=== PATIENT | female | born 1950 | race Caucasian/White ===

== ENCOUNTER → 2022-04-14 | Outpatient (CLI) | payer MEDICARE ==
[2022-04-14 14:22] LABS: African American GFR (CKD) >90 (>60 ml/min/1.73 sqM); Blood Urea Nitrogen 12 mg/dL (7-17); Non-African American GFR(CKD) 85 (>60 ml/min/1.73 sqM)
--- NOTE | 2022-04-14 15:52 | CT ---
EXAMINATION TYPE: CT angio neck CT DLP: 1726.4 mGycm, Automated exposure control for dose reduction was used. DATE OF EXAM: 04/14/2022 3:40 PM COMPARISON: None. CLINICAL INDICATION:Female, 72 years old with history of I71.2 THORACIC AORTIC ANEURYSM, WITHOUT RUPT URE; PHH, left subclavian stenosis and stent placement TECHNIQUE: Axially acquired helical CT angiogram of the neck was obtained with contrast utilizing 65 cc of Isovue-370 administered intravenously. Axial images are supplemented with 3D reconstructions wh ich were post-processed at an independent workstation. NASCET criteria used. FINDINGS: CTA NECK: Right Carotid System: The common carotid artery and external carotid artery are patent. The carotid bifurcation demonstrate s mild calcified and noncalcified plaque. Less than 50% stenosis at the origin of the internal caroti d artery. The remaining portions of the internal carotid artery demonstrate normal size without signi ficant narrowing. Medial deviation of the common carotid artery at the level of thyroid. Left Carotid System: The common carotid artery and external carotid artery are patent. The carotid bifurcation demonstrate s mild calcified and noncalcified plaque. Less than 50% stenosis at the origin of the internal caroti d artery. The remaining portions of the internal carotid artery demonstrate normal size without sign ificant narrowing. Medial deviation of the common carotid artery at the level of thyroid. Vertebral arteries are patent without evidence hemodynamically significant stenosis. Mild atelectatic plaquing of the intracranial portions of both vertebral arteries. There is a three-vessel aortic arch. The origins of the great vessels are patent. Moderate stenosis a t the origin of the left common carotid artery secondary to calcified plaque. Patent left subclavian artery stent at its origin with mural thrombus identified with approximately 60-80% narrowing. There is approximately 50% stenosis secondary to calcified plaque just before the origin of the left subcla vian artery. The right brachiocephalic trunk is patent with minimal noncalcified and calcified pleura l plaquing. IMPRESSION: 1. No evidence of dissection of the cervical internal carotid arteries or vertebral arteries. 2. Less than 50% stenosis of the bilateral internal carotid arteries at their origins secondary to ca lcified and noncalcified plaque. 3. Moderate stenosis at the origin of the left common carotid artery secondary to calcified plaque. 4. The left subclavian artery stent is patent however there is mural thrombus and narrowing of 60-80% . Approximately 50% stenosis of the left subclavian artery secondary to calcified plaque just before the origin of the left vertebral artery.
--- NOTE | 2022-04-14 16:25 | CT ---
EXAMINATION TYPE: CT angio chest CT DLP: 1726.4 mGycm, Automated exposure control for dose reduction was used. DATE OF EXAM: 04/14/2022 4:09 PM COMPARISON: CTA chest 09/20/2012. CLINICAL INDICATION:Female, 72 years old with history of I71.2 THORACIC AORTIC ANEURYSM, WITHOUT RUPT URE; AAA, without rupture TECHNIQUE/CONTRAST: CTA scan of the thorax is performed with IV Contrast, patient injected with 65 mL of Isovue 370MIP an d 3-D images are created and reviewed. FINDINGS: Lungs/Pleura: No evidence of pleural effusion or pneumothorax. Marginal increase in size of right upp er lobe 6 mm groundglass nodular density from prior examination 2013 (series 3, image 20). Mild centr ilobular and paraseptal emphysematous changes. Right upper lobe calcified granuloma. Right lower lobe subsegmental atelectasis. Airway: Large airways are patent. Heart: Heart is within normal limits for size. No pericardial effusion. Coronary artery calcification s and/or stents. Postsurgical changes of CABG. Vasculature: Mild smooth prominence of the ascending aorta measuring up to 3.4 cm, previously 3.3 cm when measured with similar technique. Atherosclerotic calcification of the aorta and its branches. Mi ld stenosis of the origin of the celiac axis and SMA. Please refer to dedicated CTA neck of the same day for findings related to the cranial vessels. Mediastinum: No gross evidence of adenopathy. Musculoskeletal: No acute osseous abnormalities. Median sternotomy wires. Multilevel degenerative nir nges of the visualized spine. Soft Tissues: Unremarkable. Lower neck: No significant findings. Upper Abdomen: Small hiatal hernia. Postoperative changes of the GE junction. Scattered calcified gra nulomas within the spleen. Liver is diffusely hypoattenuating. Contrast is demonstrated within the bi lateral renal collecting systems which limits evaluation for renal calculi. Bilateral renal cysts lar gest in the superior pole the right kidney measuring 2.4 cm.. IMPRESSION: 1. Marginal increase in size of smooth prominence of the ascending aorta measuring up to 3.4 cm from 2013. 2. Marginal increase in size of right upper lobe 6 millimeter groundglass nodular density dating jose k to 2012. Likely benign, consider follow-up CT chest one year. 3. Mild COPD changes. 4. Please refer to dedicated CTA neck of the same day for findings related to great vessels. 5. Sequelae of prior granulomatous disease. 6. Hepatic steatosis.
== END | disposition home or self-care (01) ==
LOC: RADCTMAIN 13:34
PROVIDERS: ATTEND Surgery
DX: I71.20 Thoracic aortic aneurysm, without rupture, unspecified (principal); I65.23 Occlusion and stenosis of bilateral carotid arteries; J44.9 Chronic obstructive pulmonary disease, unspecified; K76.0 Fatty (change of) liver, not elsewhere classified; J98.4 Other disorders of lung
CPT/HCPCS: 82565; 84520; 70498; 71275; 36415; Q9967

== ENCOUNTER 2022-06-12 07:53 | Day surgery (SDC) | payer MEDICARE ==
[~2022-06-12 07:53] MED LIST: ALPRAZolam 0.25 MG TAB PO PRN; ALPRAZolam 0.5 MG TAB PO PRN; ASPIRIN 325 MG TAB PO STA; NITROGLYCERIN SL TABS 0.4 MG TAB SUBLINGUAL PRN
[2022-06-12] MEDS: SODIUM CHLORIDE 0.9% 1,000 ML in EMPTY BAG 1 BAG IV SCH ×10 (08:15→22:22)
[2022-06-12] MEDS ORDERED: LIDOCAINE 1% INJ 10MG/ML (30 ML VIAL-PF) IV ONE (09:30)
[2022-06-12] MEDS ORDERED: MIDAZOLAM 2 MG/2 ML VIAL IV ONE ×2 (09:33→09:44)
[2022-06-12] MEDS ORDERED: HEPARIN SODIUM 1,000 UN/ML (10ML VL) IV ONE (09:45)
[2022-06-12] MEDS ORDERED: fentaNYL (PF) 50 MCG/ML 2 ML AMP IV ONE (09:58)
[2022-06-12] MEDS ORDERED: BUDESONIDE 0.5 MG/2 ML NEBU INHALATION PRN (10:14)
[2022-06-12] MEDS ORDERED: traMADol 50 MG TAB PO PRN (10:14)
[2022-06-12] MEDS ORDERED: NITROGLYCERIN SL TABS 0.4 MG TAB SUBLINGUAL PRN (10:14)
[2022-06-12] MEDS ORDERED: NALOXONE 0.4 MG/ML 1 ML VIAL IVP PRN (10:15)
--- NOTE | 2022-06-12 10:21 | P.PCN ---
Date of Procedure: 06/12/22 Operative Findings: PERCUTANEOUS PERIPHERAL INTERVENTION Performing physician Virgilio Truong M.D. Procedure performed #1 Successful stenting of the left subclavian using 8.0 x 59 mm balloon expandable stent with an excellent angiographic results #2 Left subclavian angiogram #3 An aortic arch and #4 Right common femoral artery angiogram #5 Ultrasound-guided access of the right common femoral art Indication Critical left subclavian stenosis in this patient was experiencing steel syndrome. 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 The right common femoral artery was cannulated using micropuncture technique under ultrasound guidance, the micropuncture wire passed easily then I placed a 6-Comoran 70 cm at the right common femoral artery. I predilated the common femoral artery using a short 6-Comoran dilator. After that I did an aortic arch angiogram using 6-Comoran pigtail catheter and using a power injection. That revealed critical disease involving the ostial left subclavian and revealed type II aortic arch. After that I was able to engage the left subclavian using a Tacho right catheter. I did wire it using a stiff Glidewire. Then I did advanced a sheath over the wire and the catheter to the ostial left subclavian were I did selective left subclavian angiogram which confirmed a critical lesion. Bone angioplasty was performed using 5 mm balloon before I deployed a 2.0 x 59 mm stent where the stent was positioned under fluoroscopy guidance and deployed under 8 jazmine for 20 seconds. Postdilatation was performed using 9 mm balloon. The final allowing angiogram showed good angiographic results with reduction of stenosis from 90% to 20%. The procedure was completed was no complications. After that I did exchange my long sheath into short sheath using 035 stiff Glidewire before I did selective right common femoral artery angiogram Postprocedure management #1 dual antiplatelet therapy #2 aggressive cholesterol control #3 risk factors modification #4 follow-up with the patient
[2022-06-12] MEDS ORDERED: IOPAMIDOL-250 100ML BTL INTRAARTER ONE (10:33)
--- NOTE | 2022-06-12 10:42 | IR ---
EXAMINATION TYPE: IR stent intravas non coronary DATE OF EXAM: 06/12/2022 COMPARISON: NONE HISTORY: Fluoroscopy time. Fluoroscopy was provided to the referring clinician.
[2022-06-12] MEDS ORDERED: HYDROmorphone 1 MG/ML 1 ML SYRINGE ONE (11:36)
[2022-06-12] MEDS ORDERED: HYDROmorphone 1 MG/ML 1 ML SYRINGE IVP STA (11:40)
[2022-06-12] MEDS ORDERED: MAG HYDROX/AL HYDROX/SIMETH 30 ML CUP PO STA (12:12)
[2022-06-12] MEDS ORDERED: HYDROmorphone 1 MG/ML 1 ML SYRINGE IVP PRN (15:29)
[2022-06-12] MEDS ORDERED: ALPRAZolam 0.25 MG TAB PO SCH (21:00)
[2022-06-12] MEDS ORDERED: CLOPIDOGREL 75 MG TAB PO SCH (21:00)
[2022-06-12] MEDS ORDERED: carvediloL 6.25 MG TAB PO SCH (21:00)
[2022-06-12] MEDS: SACUBITRIL/VALSARTAN 24 MG-26 MG TABLET PO SCH (22:20)
[2022-06-12] MEDS: LORATADINE 10 MG TAB PO SCH (22:20)
--- NOTE | 2022-06-13 06:28 | P.DS ---
Providers Attending physician: Virgilio Truong Primary care physician: [facility] Course: Patient is a pleasant 72-year-old female patient was diagnosed recently with a steal syndrome. She was found to have by computed tomography scan critical left subclavian stenosis. She underwent yesterday successful stenting of the left subclavian with a good angiographic results and with no complication from right groin approach. The right groin is soft and nontender was no bruises. The ayden constantino is going to be discharged home on dual antiplatelet therapy. She, the on statin because she is intolerant to statin. I will follow-up with the patient in a week in the office Plan - Discharge Summary Discharge Rx Participant: No New Discharge Prescriptions: Continue Isosorbide Mononitrate [Imdur] 120 mg PO DAILY Furosemide [Lasix] 20 mg PO DAILY carvediloL [Coreg] 3.125 mg PO QAM Levothyroxine Sodium [Synthroid] 50 mcg PO DAILY Nitroglycerin Sl Tabs [Nitrostat] 0.4 mg SUBLINGUAL Q5M PRN PRN Reason: Chest Pain traMADol HCl [Ultram] 50 mg PO Q6HR PRN PRN Reason: Pain Omeprazole 40 mg PO DAILY Evolocumab [Repatha Sureclick] 140 mg SQ Q14D carvediloL [Coreg] 6.25 mg PO HS allopurinoL [Zyloprim] 100 mg PO DAILY Clopidogrel [Plavix] 75 mg PO HS Aspirin 81 mg PO DAILY Albuterol Sulfate [Proair Hfa] 1 - 2 puff INHALATION Q6HR PRN PRN Reason: Shortness Of Breath Montelukast [Singulair] 10 mg PO DAILY Cetirizine HCl [Zyrtec] 5 mg PO BID Budesonide [Pulmicort] 0.5 mg INHALATION HS PRN PRN Reason: Shortness Of Breath Spironolactone [Aldactone] 25 mg PO DAILY Cholecalciferol [Vitamin D3 (25 Mcg = 1000 Iu)] 50 mcg PO DAILY ALPRAZolam [Xanax] 0.125 mg PO HS Multivitamins, Thera [Multivitamin (formulary)] 1 tab PO DAILY Folic Acid 1 mg PO DAILY Ubidecarenone [Co Q-10] 100 mg PO DAILY Sacubitril/Valsartan [Entresto 24 mg-26 mg Tablet] 1 each PO BID Discharge Medication List ALPRAZolam [Xanax] 0.125 mg PO HS 06/09/22 [History] Albuterol Sulfate [Proair Hfa] 1 - 2 puff INHALATION Q6HR PRN 06/09/22 [History] Aspirin 81 mg PO DAILY 06/09/22 [History] Budesonide [Pulmicort] 0.5 mg INHALATION HS PRN 06/09/22 [History] Cetirizine HCl [Zyrtec] 5 mg PO BID 06/09/22 [History] Cholecalciferol [Vitamin D3 (25 Mcg = 1000 Iu)] 50 mcg PO DAILY 06/09/22 [History] Clopidogrel [Plavix] 75 mg PO HS 06/09/22 [History] Evolocumab [Repatha Sureclick] 140 mg SQ Q14D 06/09/22 [History] Folic Acid 1 mg PO DAILY 06/09/22 [History] Furosemide [Lasix] 20 mg PO DAILY 06/09/22 [History] Isosorbide Mononitrate [Imdur] 120 mg PO DAILY 06/09/22 [History] Levothyroxine Sodium [Synthroid] 50 mcg PO DAILY 06/09/22 [History] Montelukast [Singulair] 10 mg PO DAILY 06/09/22 [History] Multivitamins, Thera [Multivitamin (formulary)] 1 tab PO DAILY 06/09/22 [History] Nitroglycerin Sl Tabs [Nitrostat] 0.4 mg SUBLINGUAL Q5M PRN 06/09/22 [History] Omeprazole 40 mg PO DAILY 06/09/22 [History] Sacubitril/Valsartan [Entresto 24 mg-26 mg Tablet] 1 each PO BID 06/09/22 [History] Spironolactone [Aldactone] 25 mg PO DAILY 06/09/22 [History] Ubidecarenone [Co Q-10] 100 mg PO DAILY 06/09/22 [History] allopurinoL [Zyloprim] 100 mg PO DAILY 06/09/22 [History] carvediloL [Coreg] 3.125 mg PO QAM 06/09/22 [History] carvediloL [Coreg] 6.25 mg PO HS 06/09/22 [History] traMADol HCl [Ultram] 50 mg PO Q6HR PRN 06/09/22 [History] Follow up Appointment(s)/Referral(s): Virgilio Truong MD [STAFF PHYSICIAN] - 06/23/22 1:30 pm ([address] office for this appointment.)
[2022-06-13] MEDS ORDERED: LEVOTHYROXINE 50 MCG TAB PO SCH (06:30)
[2022-06-13 07:26] VITALS: BP 136/67; PULSE 62; RESP 16; TEMP 98.4
[2022-06-13] MEDS: SACUBITRIL/VALSARTAN 24 MG-26 MG TABLET PO SCH (07:27)
[2022-06-13] MEDS: LORATADINE 10 MG TAB PO SCH (07:27)
[2022-06-13 07:29] LABS: African American GFR (CKD) >90 (>60 ml/min/1.73 sqM); Non-African American GFR(CKD) >90 (>60 ml/min/1.73 sqM)
[2022-06-13] MEDS ORDERED: carvediloL 3.125 MG TAB PO SCH (07:30)
[2022-06-13] MEDS ORDERED: PANTOPRAZOLE 40 MG TABLET PO SCH (07:30)
[2022-06-13] MEDS ORDERED: CHOLECALCIFEROL 25 MCG (1000 IU) TABLET PO SCH (09:00)
[2022-06-13] MEDS ORDERED: MULTIVITAMINS, THERA 1 EACH TAB PO SCH (09:00)
[2022-06-13] MEDS ORDERED: ASPIRIN 81 MG PO SCH (09:00)
[2022-06-13] MEDS ORDERED: FOLIC ACID 1 MG TAB PO SCH (09:00)
[2022-06-13] MEDS ORDERED: FUROSEMIDE 20 MG TAB PO SCH (09:00)
[2022-06-13] MEDS ORDERED: NON FORMULARY DRUG (Evolocumab [Repatha Sureclick] 140 MG/ML Each) SQ SCH (09:00)
[2022-06-13] MEDS ORDERED: SPIRONOLACTONE 25 MG TAB PO SCH (09:00)
[2022-06-13] MEDS ORDERED: NON FORMULARY DRUG (Ubidecarenone [Co Q-10] 300 MG Capsule) PO SCH (09:00)
[2022-06-13] MEDS ORDERED: allopurinoL 100 MG TAB PO SCH (09:00)
[2022-06-13] MEDS ORDERED: MONTELUKAST 10 MG TAB PO SCH (09:00)
[2022-06-13] MEDS ORDERED: ISOSORBIDE MONONITRATE ER 60 MG TAB.ER.24H PO SCH (09:00)
== END 2022-06-13 09:52 | disposition home or self-care (01) ==
LOC: CATHCVL 07:53 → 3SCARD 10:10 → CATHCVL 06-13 09:52
PROVIDERS: ATTEND Internal Medicine Interventional Cardiology
DX: I77.1 Stricture of artery (principal); I25.10 Atherosclerotic heart disease of native coronary artery without angina pectoris; Z79.51 Long term (current) use of inhaled steroids; Z79.82 Long term (current) use of aspirin; Z79.899 Other long term (current) drug therapy; Z79.02 Long term (current) use of antithrombotics/antiplatelets; Z79.890 Hormone replacement therapy; Z88.0 Allergy status to penicillin; Z88.1 Allergy status to other antibiotic agents; Z88.8 Allergy status to other drugs, medicaments and biological substances
CPT/HCPCS: 37236 ×2; 36200; 76937; 36221; 82565; 84484; C1894 ×2; C1769 ×4; C1725; C1876; J2250; J2001; J3010; J1644; J1170; Q9966

== ENCOUNTER → 2022-10-14 | Outpatient (CLI) | payer MEDICARE ==
[2022-10-14 10:19] VITALS: BP 111/65; PULSE 67; RESP 18; TEMP 98.1
--- NOTE | 2022-10-14 13:47 | P.PAINPG ---
Objective - Vital Signs Vital signs: Intake & Output 10/13/22 10/14/22 10/14/22 18:59 06:59 18:59 Weight 79.379 kg PQRS Measure Charge Sheet Comment: HISTORY OF PRESENT ILLNESS: 72 yr old female as a referral from Dr Solano presents today w severe and chronic mid back pain secondary to thoracic DDD, spondylosis and facet arthropathy without myelopathy for evaluation. Pt states pain level is provoked at 8 /10 in intensity, constant, localized in the mid spine, sharp, stabbing in character w shooting pain up towards the spine. Pain is provoked by over activity and lifting. Pain is alleviated by chiropractic treatments semi weekly as needed for yrs which ended in Aug 2022, heat, ice, medications (Tramadol, Tyl), topical, repositioning and rest. PMH: HTN, Hyperlipidemia, CHF, Hypothyroidism, OA, GERD, Gout, Asthma, Anxiety PSH: Lumbar Surgery x5, Open Heart Surgery, Hysterectomy, AAA, Gastric Flap SH: Negative x 3 FH: Non contributory All: See list Meds: See list REVIEW OF ORGAN SYSTEMS: CONSTITUTIONAL: No fevers or chills. No recent weight loss. NEUROLOGICAL: + numbness and tingling along the distal extremities. No seizure disorders or headaches. MUSCULOSKELETAL: + pain PSYCHIATRIC: Denies current depression or suicidal thoughts. Physical Examinations : Constitutional : Cooperative , not in acute distress . Neurologic : Cranial nerve II to XII intact. No focal neurological deficits. Psychiatric : alert & oriented x 3. Matching mood & appropriate affect. Judgment & insight intact. Musculoskeletal : Cervical Spine Motor strength in the deltoid and biceps: Normal right side. Normal Left side Motor strength biceps and the wrist extensors: Normal right side . Normal left side Motor strength in the triceps muscle: Normal right side. Normal left side Deep tendon reflexes: Normal at the biceps. Normal at Brachioradialis. Normal at triceps Vertebral body tenderness to deep palpation over Cervical facet loading test: positive bilaterally Spurling test: positive bilaterally Neck distraction test: positive bilaterally Aleena sign: positive bilaterally Thoracic spine Vertebral body TTP over T12 w +Cervantes at T11, T12, L1 Lumbar spine Motor strength lower extremities ,thigh and legs 5/5 Right side , 5/5 Left side Deep tendon reflexes : Normal Knee Jerk. Normal Ankle Jerk Vertebral body tenderness over Cervantes Test positive Lumbar facet Loading Test: positive Right / positive Left Range of motion of the lumbar spine Flexion 30 degrees, extension 10 degrees Straight Leg Raise test: Left/ Right positive at degree Wan test: positive right / positive left. Severe tenderness over the Sacroiliac joint on the Right / Left sides Gaenslen test: positive bilaterally Seated flexion test: positive bi laterally. Sacral spine : Severe tenderness over the Sacroiliac joint: right side / left side Range of motion: Flexion of the lumbar spine <60 degrees Range of motion: Extension of the lumbar spine <20 degrees Gaenslen's Test positive Navi's Test positive Wan test: positive right side / left side Thigh Thrust Test Sacral Thrust Test Imaging: CT non contrast of the thoracic spine from 08/03/22 reviewed Assessment/ Plan : Thoracic spondylosis Recommendation of LAMONTE T12-L1. May need a series of injections for optimal pain relief. Risks, benefits of procedure discussed and patient verbalized understanding. Admits to aspirin or anti- coagulant use or medical history of diabetes. Protocol for discontinuation/ continuation of medications iva procedure discussed. Minimal anesthesia provided, if clinically indicated, consisting of Versed and Fentanyl. All questions answered. I have spent greater than 30 minutes on patient care today. Dr Dotson was available by phone for the evaluation of this patient. The time was used to review the medical records including relevant urine studies and Prescription history (MAPs), review of the available imaging, evaluation and examination of the patient, coordination of care with the medical staff and if applicable referring physicians, as well as creation of the medical record Home Medications: Ambulatory Orders ALPRAZolam [Xanax] 0.125 mg PO HS 06/09/22 Albuterol Sulfate [Proair Hfa] 1 - 2 puff INHALATION Q6HR PRN 06/09/22 Aspirin 81 mg PO DAILY 06/09/22 Budesonide [Pulmicort] 0.5 mg INHALATION HS PRN 06/09/22 Cetirizine HCl [Zyrtec] 5 mg PO BID 06/09/22 Cholecalciferol [Vitamin D3 (25 Mcg = 1000 Iu)] 50 mcg PO DAILY 06/09/22 Clopidogrel [Plavix] 75 mg PO HS 06/09/22 Evolocumab [Repatha Sureclick] 140 mg SQ Q14D 06/09/22 Folic Acid 1 mg PO DAILY 06/09/22 Furosemide [Lasix] 20 mg PO DAILY 06/09/22 Isosorbide Mononitrate [Imdur] 120 mg PO DAILY 06/09/22 Levothyroxine Sodium [Synthroid] 50 mcg PO DAILY 06/09/22 Montelukast [Singulair] 10 mg PO DAILY 06/09/22 Multivitamins, Thera [Multivitamin (formulary)] 1 tab PO DAILY 06/09/22 Nitroglycerin Sl Tabs [Nitrostat] 0.4 mg SUBLINGUAL Q5M PRN 06/09/22 Omeprazole 40 mg PO DAILY 06/09/22 Sacubitril/Valsartan [Entresto 24 mg-26 mg Tablet] 1 each PO BID 06/09/22 Spironolactone [Aldactone] 25 mg PO DAILY 06/09/22 Ubidecarenone [Co Q-10] 100 mg PO DAILY 06/09/22 allopurinoL [Zyloprim] 100 mg PO DAILY 06/09/22 carvediloL [Coreg] 3.125 mg PO QAM 06/09/22 carvediloL [Coreg] 6.25 mg PO HS 06/09/22 traMADol HCl [Ultram] 50 mg PO Q6HR PRN 06/09/22 Controlled Substance Measures - Controlled Substance Measures Is patient prescribed a controlled substance at discharge?: No
== END ==
LOC: PNWHC3 09:38
PROVIDERS: ATTEND Specialist
DX: M47.814 Spondylosis without myelopathy or radiculopathy, thoracic region (principal); Z79.82 Long term (current) use of aspirin; E78.5 Hyperlipidemia, unspecified; I50.9 Heart failure, unspecified; E03.9 Hypothyroidism, unspecified; M19.90 Unspecified osteoarthritis, unspecified site; J45.909 Unspecified asthma, uncomplicated; K21.9 Gastro-esophageal reflux disease without esophagitis; F41.9 Anxiety disorder, unspecified; I11.0 Hypertensive heart disease with heart failure; M10.9 Gout, unspecified; Z88.8 Allergy status to other drugs, medicaments and biological substances
CPT/HCPCS: 99211

== ENCOUNTER 2022-11-05 06:43 | Day surgery (SDC) | payer MEDICARE ==
[2022-11-05 07:18] VITALS: RESP 16; TEMP 97.8
[2022-11-05] MEDS ORDERED: LACTATED RINGERS 1,000 ML IV SCH (07:41)
[2022-11-05] MEDS ORDERED: methylPREDNISolone ACETATE 40 MG/ML 1 ML VIAL ONE (07:42)
[2022-11-05] MEDS ORDERED: IOPAMIDOL M200 10 ML VIAL ONE (07:42)
--- NOTE | 2022-11-05 07:51 | P.PCN ---
Date of Procedure: 11/05/22 Procedure(s) Performed: PREOPERATIVE DIAGNOSIS: 1- Thoracic Degenerative Disc Diseases 2-Thoracic spondylosis with Facet arthropathy without myelopathy. POSTOPERATIVE DIAGNOSIS: 1-thoracic degenerative disc disease. 2-thoracic spondylosis with facet arthropathy without myelopathy. . PROCEDURE 1. Lumbar epidural steroid injection under fluoroscopic guidance at the T12-L1 level. (Fluoroscopy imaging was available in radiology department) 2. Lumbar epidurogram. ANESTHESIA: Local anesthesia with lidocaine 1% 3 and only EBL: Minimal PROCEDURE INDICATION: The patient with upper,and mid back pain and radiculitis symptoms unresponsive to conservative treatment. Fluoroscopy was used to optimize visualization of the needle placement and to maximize safety. PROCEDURE DESCRIPTION / TECHNIQUE: The patient was seen and identified in the preoperative area. Risks, benefits, complications including but not limited to infections ,bleeding ,allergic reaction to the medications ,nerve damage and not complete pain releife , and alternatives were discussed with the patient. The patient agreed to proceed with the procedure and signed the consent. IV was started, and vital signs were stable. Patient was taken to the OR and time out was completed. The patient was placed in the prone position on procedure table and a pillow was placed under the abdomen to reduce lumbar lordosis. The lumbosacral area was prepped and draped in the usual sterile fashion.ere closely monitored during the procedure.. Vital signs was monitered during the entire procedure. Using anterior-posterior fluoroscopy, the T12-L1 interlaminar space was identified and the skin over this site was marked and then infiltrated with 1% lidocaine subcutaneously. Subsequently, a 20-gauge Tuohy epidural needle was inserted and advanced toward the epidural space using the ``Loss of resistance t echnique and guided by AP and lateral fluoroscopy. The correct needle position in the epidural space was verified with the injection of 2 mL of the water soluble contrast dye Isovue 200 contrast and observing an excellent epidurogram with the epidural spread of the dye, after negative aspiration for blood and CSF and in the absence of paresthesias. Again after negative aspiration, a 6 ml mixture containing 40 mg of Depo-medrol ( Preservetive Free ), and 2 ml of preservative free Normal Saline, and 2 ml of preservative free lidocaine 1% solution was injected and a washout of epidurogram was seen. Needle was withdrawn intact, skin was cleansed, and bandages were applied. COMPLICATIONS: None DISPOSITION / PLANS: The patient was placed in a supine position and transferred to the recovery area in a stable condition for observation. There was no evidence of lower extremity motor or sensory deficit after the procedure. Patient was discharged from the recovery room after meeting discharge criteria. Home discharge instructions were given to the patient by the staff. The patient was reexamined prior to discharge. The patient will schedule a follow up in the clinic in 2-4 weeks.
[2022-11-05 08:07] VITALS: BP 105/59; PULSE 61
--- NOTE | 2022-11-05 09:35 | FL ---
Intraoperative/procedural fluoroscopic services were provided for thoracic spine epidural injection. Total fluoroscopy time is 4.6 seconds with a total of 1 submitted image to PACS. Total DAP [id number] mG ym2. Please see the operative note for further details.
== END 2022-11-05 08:09 | disposition home or self-care (01) ==
LOC: ORPAIN 06:43
PROVIDERS: ATTEND Specialist
DX: M51.14 Intervertebral disc disorders with radiculopathy, thoracic region (principal); M47.24 Other spondylosis with radiculopathy, thoracic region; Z88.8 Allergy status to other drugs, medicaments and biological substances
CPT/HCPCS: 62321; J1030; Q9966

== ENCOUNTER → 2022-12-02 | Outpatient (CLI) | payer MEDICARE ==
[2022-12-02 15:32] VITALS: BP 120/63; PULSE 67; RESP 16
--- NOTE | 2022-12-02 15:34 | P.PAINPG ---
PQRS Measure Charge Sheet Comment: 72 yr old female presents today w severe and chronic mid back pain secondary to thoracic DDD, spondylosis and facet arthropathy without myelopathy for evaluation s/p LAMONTE T12-L1. Pt states she experienced 50% x 5 days s/p procedure. Pt states pain level is provoked at 9/10 in intensity, constant, localized in the mid spine, sharp, stabbing in character w shooting pain up towards the spine. Pain is provoked by over activity and lifting. Pain is alleviated by chiropractic treatments semi weekly as needed for yrs which ended in Aug 2022, heat, ice, medications (Tramadol, Tyl), topical, repositioning and rest. Oswestry axial pain score of 25. Interventional procedures include LAMONTE T12-L1 x1 Medications include Tramadol, Tyl, topicals REVIEW OF ORGAN SYSTEMS: CONSTITUTIONAL: No fevers or chills. No recent weight loss. NEUROLOGICAL: + numbness and tingling along the distal extremities. No seizure disorders or headaches. MUSCULOSKELETAL: + pain PSYCHIATRIC: Denies current depression or suicidal thoughts. Physical Examinations : Constitutional : Cooperative , not in acute distress . Neurologic : Cranial nerve II to XII intact. No focal neurological deficits. Psychiatric : alert & oriented x 3. Matching mood & appropriate affect. Judgment & insight intact. Musculoskeletal : Cervical Spine Motor strength in the deltoid and biceps: Normal right side. Normal Left side Motor strength biceps and the wrist extensors: Normal right side . Normal left side Motor strength in the triceps muscle: Normal right side. Normal left side Deep tendon reflexes: Normal at the biceps. Normal at Brachioradialis. Normal at triceps Vertebral body tenderness to deep palpation over Cervical facet loading test: positive bilaterally Spurling test: positive bilaterally Neck distraction test: positive bilaterally Aleena sign: positive bilaterally Thoracic spine Taut bands w twitch response over BL T4-T12 Lumbar spine Motor strength lower extremities ,thigh and legs 5/5 Right side , 5/5 Left side Deep tendon reflexes : Normal Knee Jerk. Normal Ankle Jerk Vertebral body tenderness over Cervantes Test positive Lumbar facet Loading Test: positive Right / positive Left Range of motion of the lumbar spine Flexion 30 degrees, extension 10 degrees Straight Leg Raise test: Left/ Right positive at degree Wan test: positive right / positive left. Severe tenderness over the Sacroiliac joint on the Right / Left sides Gaenslen test: positive bilaterally Seated flexion test: positive bilaterally. Sacral spine : Severe tenderness over the Sacroiliac joint: right side / left side Range of motion: Flexion of the lumbar spine <60 degrees Range of motion: Extension of the lumbar spine <20 degrees Gaenslen's Test positive Navi's Test positive Wan test: positive right side / left side Thigh Thrust Test Sacral Thrust Test Imaging: CT non contrast of the thoracic spine from 08/03/22 reviewed Assessment/ Plan : Thoracic spondylosis Recommendation of BL Thoracic TPIs. May need a series of injections for optimal pain relief. Risks, benefits of procedure discussed and patient verbalized understanding. Admits to aspirin or anti- coagulant use or medical history of diabetes. Protocol for discontinuation/ continuation of medications iva procedure discussed. Minimal anesthesia provided, if clinically indicated, consisting of Versed and Fentanyl. All questions answered. I have spent greater than 30 minutes on patient care today. Dr Dotson was available by phone for the evaluation of this patient. The time was used to review the medical records including relevant urine studies and Prescription history (MAPs), review of the available imaging, evaluation and examination of the patient, coordination of care with the medical staff and if applicable referring physicians, as well as creation of the medical record PQRS Narrative: Hx Alcohol Use (MH) No Home Medications: Ambulatory Orders ALPRAZolam [Xanax] 0.125 mg PO HS 06/09/22 Albuterol Sulfate [Proair Hfa] 1 - 2 puff INHALATION Q6HR PRN 06/09/22 Aspirin 81 mg PO DAILY 06/09/22 Budesonide [Pulmicort] 0.5 mg INHALATION HS PRN 06/09/22 Cetirizine HCl [Zyrtec] 5 mg PO BID 06/09/22 Cholecalciferol [Vitamin D3 (25 Mcg = 1000 Iu)] 50 mcg PO DAILY 06/09/22 Clopidogrel [Plavix] 75 mg PO HS 06/09/22 Evolocumab [Repatha Sureclick] 140 mg SQ Q14D 06/09/22 Folic Acid 1 mg PO DAILY 06/09/22 Furosemide [Lasix] 20 mg PO DAILY 06/09/22 Isosorbide Mononitrate [Imdur] 120 mg PO DAILY 06/09/22 Levothyroxine Sodium [Synthroid] 50 mcg PO DAILY 06/09/22 Montelukast [Singulair] 10 mg PO DAILY 06/09/22 Multivitamins, Thera [Multivitamin (formulary)] 1 tab PO DAILY 06/09/22 Nitroglycerin Sl Tabs [Nitrostat] 0.4 mg SUBLINGUAL Q5M PRN 06/09/22 Omeprazole 40 mg PO DAILY 06/09/22 Sacubitril/Valsartan [Entresto 24 mg-26 mg Tablet] 1 each PO BID 06/09/22 Spironolactone [Aldactone] 25 mg PO DAILY 06/09/22 Ubidecarenone [Co Q-10] 100 mg PO DAILY 06/09/22 allopurinoL [Zyloprim] 100 mg PO DAILY 06/09/22 carvediloL [Coreg] 3.125 mg PO QAM 06/09/22 carvediloL [Coreg] 6.25 mg PO HS 06/09/22 traMADol HCl [Ultram] 50 mg PO Q6HR PRN 06/09/22 Controlled Substance Measures - Controlled Substance Measures Is patient prescribed a controlled substance at discharge?: No
== END ==
LOC: PNWHC3 14:00
PROVIDERS: ATTEND Specialist
DX: M47.814 Spondylosis without myelopathy or radiculopathy, thoracic region (principal); M51.34 Other intervertebral disc degeneration, thoracic region; G89.29 Other chronic pain; Z88.8 Allergy status to other drugs, medicaments and biological substances; Z79.82 Long term (current) use of aspirin
CPT/HCPCS: 99211

== ENCOUNTER 2022-12-17 10:07 | Day surgery (SDC) | payer MEDICARE ==
[2022-12-15 11:27] VITALS: BMI 30.1
[~2022-12-17 10:07] MED LIST changes: -ALPRAZolam 0.25 MG TAB PO PRN; -ALPRAZolam 0.5 MG TAB PO PRN; -ASPIRIN 325 MG TAB PO STA; +LACTATED RINGERS 1,000 ML IV SCH; -NITROGLYCERIN SL TABS 0.4 MG TAB SUBLINGUAL PRN
[2022-12-17] MEDS ORDERED: ROPIVACAINE 5 MG/ML 20 ML AMPULE ONE (10:40)
[2022-12-17] MEDS ORDERED: methylPREDNISolone ACETATE 40 MG/ML 1 ML VIAL ONE (10:40)
[2022-12-17 10:41] VITALS: TEMP 97.5
--- NOTE | 2022-12-17 10:49 | P.PCN ---
Date of Procedure: 12/17/22 Procedure(s) Performed: Procedure= trigger point injections thoracic paraspinal muscles bilaterally , 3 on the right side from T4 to T12 , and 3 on the left side from T4 to T12 Preoperative diagnosis= 1-myofascial pain syndrome thoracic paraspinal muscles 2-thoracic degenerative disc disease 3-thoracic facet arthropathy Postoperative diagnosis=Same as preop Diagnosis . Complication = none Condition= stable Anesthesia= none Indication for the procedure= patient complaining of poor and mid back pain , examination was positive for multiple trigger point in the thoracic paraspinal muscles bilaterally and patient diagnosed with myofascial pain syndrome and is here to have trigger point injections Description of the procedure= procedure risk and benefits discussed with the patient, including but not limited, risk of infection and bleeding, and ALLERGIC reaction to the medication and not complete pain relief and patient agreed with the preceding patient taken to the operating room, placed in sitting position or standard monitors applied to the patient then after induction of anesthesia back prepped with chlorhexidine 3 times , then under sterile technique each of the trigger point that was marked in the preop holding area 3 on the right side thoracic paraspinal muscles and 3 on the left side thoracic paraspinal muscles each one of them injected with the 2 mL of the mixture of ropivacaine 0.5% 12 ML mixed with 40 mg of Depo-Medrol and 2 mL of the mixture injected at each trigger point after negative aspiration, using 25-gauge needle, injection done after negative aspiration under was no paresthesia during the injection patient tolerated the procedure well without any complications and he will follow up in the pain clinic in a few weeks
[2022-12-17 10:52] VITALS: BP 101/56; PULSE 64; RESP 16
== END 2022-12-17 11:02 | disposition home or self-care (01) ==
LOC: ORPAIN 10:07
PROVIDERS: ATTEND Specialist
DX: M79.18 Myalgia, other site (principal); M51.34 Other intervertebral disc degeneration, thoracic region; M47.814 Spondylosis without myelopathy or radiculopathy, thoracic region
CPT/HCPCS: 20553; J1030; J2795

== ENCOUNTER → 2023-01-06 | Outpatient (CLI) | payer MEDICARE ==
[2023-01-06 14:08] VITALS: BP 124/62; PULSE 68; RESP 16; TEMP 98
--- NOTE | 2023-01-06 14:45 | P.PAINPG ---
PQRS Measure Charge Sheet Comment: 72 yr old female presents today w severe and chronic mid back pain secondary to thoracic DDD, spondylosis and facet arthropathy without myelopathy for evaluation s/p BL T4-T12 TPIs. Pt states she experienced 90% x 2-3 wks s/p procedure. Pt states pain level is provoked at 8/10 in intensity, constant, localized in the mid spine, sharp, stabbing in character w shooting pain up towards the spine. Pain is provoked by over activity and lifting. Pain is alleviated by chiropractic treatments semi weekly as needed for yrs which ended in Aug 2022, heat, ice, medications (Tramadol, Tyl), topical, repositioning and rest. Oswestry axial pain score of 24. Interventional procedures include LAMONTE T12-L1 x1, BL T4-T12 TPIs Medications include Tramadol, Tyl, topicals REVIEW OF ORGAN SYSTEMS: CONSTITUTIONAL: No fevers or chills. No recent weight loss. NEUROLOGICAL: + numbness and tingling along the distal extremities. No seizure disorders or headaches. MUSCULOSKELETAL: + pain PSYCHIATRIC: Denies current depression or suicidal thoughts. Physical Examinations : Constitutional : Cooperative , not in acute distress . Neurologic : Cranial nerve II to XII intact. No focal neurological deficits. Psychiatric : alert & oriented x 3. Matching mood & appropriate affect. Judgment & insight intact. Musculoskeletal : Cervical Spine Motor strength in the deltoid and biceps: Normal right side. Normal Left side Motor strength biceps and the wrist extensors: Normal right side . Normal left side Motor strength in the triceps muscle: Normal right side. Normal left side Deep tendon reflexes: Normal at the biceps. Normal at Brachioradialis. Normal at triceps Vertebral body tenderness to deep palpation over Cervical facet loading test: positive bilaterally Spurling test: positive bilaterally Neck distraction test: positive bilaterally Aleena sign: positive bilaterally Thoracic spine Taut bands w twitch response over BL T4-T12 Lumbar spine Motor strength lower extremities ,thigh and legs 5/5 Right side , 5/5 Left side Deep tendon reflexes : Normal Knee Jerk. Normal Ankle Jerk Vertebral body tenderness over Cervantes Test positive Lumbar facet Loading Test: positive Right / positive Left Range of motion of the lumbar spine Flexion 30 degrees, extension 10 degrees Straight Leg Raise test: Left/ Right positive at degree Wan test: positive right / positive left. Severe tenderness over the Sacroiliac joint on the Right / Left sides Gaenslen test: positive bilaterally Seated flexion test: positive bilaterally. Sacral spine : Severe tenderness over the Sacroiliac joint: right side / left side Range of motion: Flexion of the lumbar spine <60 degrees Range of motion: Extension of the lumbar spine <20 degrees Gaenslen's Test positive Navi's Test positive Wan test: positive right side / left side Thigh Thrust Test Sacral Thrust Test Imaging: CT non contrast of the thoracic spine from 08/03/22 reviewed Assessment/ Plan : Thoracic spondylosis Recommendation of BL T4-T12 TPIs. May need a series of injections for optimal pain relief. Risks, benefits of procedure discussed and patient verbalized understanding. Admits to aspirin or anti- coagulant use or medical history of diabetes. Protocol for discontinuation/ continuation of medications iva procedure discussed. Minimal anesthesia provided, if clinically indicated, consisting of Versed and Fentanyl. All questions answered. I have spent greater than 30 minutes on patient care today. Dr Dotson was available by phone for the evaluation of this patient. The time was used to review the medical records including relevant urine studies and Prescription history (MAPs), review of the available imaging, evaluation and examination of the patient, coordination of care with the medical staff and if applicable referring physicians, as well as creation of the medical record PQRS Narrative: Hx Alcohol Use (MH) No Home Medications: Ambulatory Orders ALPRAZolam [Xanax] 0.125 mg PO HS 06/09/22 Albuterol Sulfate [Proair Hfa] 1 - 2 puff INHALATION Q6HR PRN 06/09/22 Aspirin 81 mg PO DAILY 06/09/22 Budesonide [Pulmicort] 0.5 mg INHALATION HS PRN 06/09/22 Cetirizine HCl [Zyrtec] 5 mg PO BID 06/09/22 Cholecalciferol [Vitamin D3 (25 Mcg = 1000 Iu)] 50 mcg PO DAILY 06/09/22 Clopidogrel [Plavix] 75 mg PO HS 06/09/22 Evolocumab [Repatha Sureclick] 140 mg SQ Q14D 06/09/22 Folic Acid 1 mg PO DAILY 06/09/22 Furosemide [Lasix] 20 mg PO DAILY 06/09/22 Isosorbide Mononitrate [Imdur] 120 mg PO DAILY 06/09/22 Levothyroxine Sodium [Synthroid] 50 mcg PO DAILY 06/09/22 Montelukast [Singulair] 10 mg PO DAILY 06/09/22 Multivitamins, Thera [Multivitamin (formulary)] 1 tab PO DAILY 06/09/22 Nitroglycerin Sl Tabs [Nitrostat] 0.4 mg SUBLINGUAL Q5M PRN 06/09/22 Omeprazole 40 mg PO DAILY 06/09/22 Sacubitril/Valsartan [Entresto 24 mg-26 mg Tablet] 1 each PO BID 06/09/22 Spironolactone [Aldactone] 25 mg PO DAILY 06/09/22 Ubidecarenone [Co Q-10] 100 mg PO DAILY 06/09/22 allopurinoL [Zyloprim] 100 mg PO DAILY 06/09/22 carvediloL [Coreg] 3.125 mg PO QAM 06/09/22 carvediloL [Coreg] 6.25 mg PO HS 06/09/22 traMADol HCl [Ultram] 50 mg PO Q6HR PRN 06/09/22 Sertraline [Zoloft] 25 mg PO DAILY 12/15/22 Controlled Substance Measures - Controlled Substance Measures Is patient prescribed a controlled substance at discharge?: No
== END ==
LOC: PNWHC3 13:41
PROVIDERS: ATTEND Specialist
DX: M47.814 Spondylosis without myelopathy or radiculopathy, thoracic region (principal); Z79.82 Long term (current) use of aspirin; Z88.8 Allergy status to other drugs, medicaments and biological substances; Z79.02 Long term (current) use of antithrombotics/antiplatelets
CPT/HCPCS: 99211

== ENCOUNTER 2023-01-21 12:04 | Day surgery (SDC) | payer MEDICARE ==
[2023-01-21 12:29] VITALS: RESP 16; TEMP 97
[2023-01-21] MEDS ORDERED: methylPREDNISolone ACETATE 40 MG/ML 1 ML VIAL ONE (13:01)
[2023-01-21] MEDS ORDERED: ROPIVACAINE 5MG/ML 20ML VIAL ONE (13:01)
--- NOTE | 2023-01-21 13:05 | P.PCN ---
Date of Procedure: 01/21/23 Procedure(s) Performed: Procedure= trigger point injections thoracic paraspinal muscles bilaterally , 3 on the right side from T4 to T12 , and 3 on the left side from T4 to T12 . Preoperative diagnosis= 1-myofascial pain syndrome thoracic paraspinal muscles 2-thoracic degenerative disc disease 3-thoracic facet arthropathy . Postoperative diagnosis=Same as preop Diagnosis . Complication = none Condition= stable Anesthesia= none Indication for the procedure= patient complaining of poor and mid back pain , examination was positive for multiple trigger point in the thoracic paraspinal muscles bilaterally and patient diagnosed with myofascial pain syndrome and is here to have trigger point injections Description of the procedure= procedure risk and benefits discussed with the patient, including but not limited, risk of infection and bleeding, and ALLERGIC reaction to the medication and not complete pain relief and patient agreed with the preceding patient taken to the operating room, placed in sitting position or standard monitors applied to the patient then after induction of anesthesia back prepped with chlorhexidine 3 times , then under sterile technique each of the trigger point that was marked in the preop holding area 3 on the right side thoracic paraspinal muscles and 3 on the left side thoracic paraspinal muscles each one of them injected with the 2 mL of the mixture of ropivacaine 0.5% 12 ML mixed with 40 mg of Depo-Medrol and 2 mL of the mixture injected at each trigger point after negative aspiration, using 25-gauge needle, injection done after negative aspiration under was no paresthesia during the injection patient tolerated the procedure well without any complications and he will follow up in the pain clinic in a few weeks
[2023-01-21 13:28] VITALS: BP 146/70; PULSE 69
== END 2023-01-21 13:25 | disposition home or self-care (01) ==
LOC: ORPAIN 12:04
PROVIDERS: ATTEND Specialist
DX: M79.18 Myalgia, other site (principal); M51.34 Other intervertebral disc degeneration, thoracic region; M47.812 Spondylosis without myelopathy or radiculopathy, cervical region; Z79.82 Long term (current) use of aspirin; Z79.899 Other long term (current) drug therapy
CPT/HCPCS: 20553; J1030; J2795

== ENCOUNTER → 2024-01-26 | Outpatient (CLI) | payer MEDICARE ==
[2024-01-26 15:18] LABS: African American GFR (CKD) >90 (>60 ml/min/1.73 sqM); Blood Urea Nitrogen 12 mg/dL (7-17); Non-African American GFR(CKD) 80 (>60 ml/min/1.73 sqM)
--- NOTE | 2024-01-26 17:13 | CT ---
EXAMINATION TYPE: CT urogram wo/w con CT DLP: 1916.4 mGycm, Automated exposure control for dose reduction was used. DATE OF EXAM: 01/26/2024 4:07 PM COMPARISON: None CLINICAL INDICATION:Female, 73 years old with history of C67.9 MALIGNANT NEOPLASM OF BLADDER, UNSPECI FIED; PHH, bladder ca TECHNIQUE: Urogram of the abdomen and pelvis was performed before and after the administration of 100 cc of IV c ontrast Isovue 300 contrast. Delayed imaging was performed. Coronal and sagittal reformats were perfo rmed. One or more CT dose reduction strategies were utilized during this examination. 2D and 3D recon structions are performed to assist visualization of the urinary tract on a separate workstation. FINDINGS: GENITOURINARY: RIGHT KIDNEY AND URETER: No calculi. No hydronephrosis or hydroureter. There are 2 right superior lee e renal cyst with largest measures 3.4 cm. No enhancement is identified. Additional subcentimeter cys ts. No urothelial lesions: no filling defect, dilation, stricture or wall thickening. LEFT KIDNEY AND URETER: No calculi. No hydronephrosis or hydroureter. Duplicated collecting system wh ich merges together at the ureterovesical junction. There are few tiny subcentimeter nonenhancing don al cysts. No urothelial lesions: no filling defect, dilation, stricture or wall thickening. URINARY BLADDER: Moderately well distended. Normal, no calculi, mass or other lesions. REPRODUCTIVE: Post hysterectomy. ABDOMEN LIVER: Unremarkable. GALLBLADDER AND BILE DUCTS: Gallbladder is surgically absent. No biliary ductal dilatation. PANCREAS: Unremarkable. SPLEEN: Scattered calcified granulomas. ADRENAL GLANDS: Unremarkable. STOMACH AND BOWEL: Small hiatal hernia with postsurgical changes of the GE junction from hernia repai r. Scattered pancolonic diverticulosis without evidence for acute diverticulitis. No evidence of norma l obstruction. PERITONEUM: No evidence of pneumoperitoneum, free fluid, or adenopathy. VASCULATURE: No aortic aneurysm. Moderate atherosclerotic calcification of the aorta and its branches . Suggested high-grade stenosis of the origin of the celiac axis secondary to atherosclerotic plaque. Calcified plaque along the visualized portion of the SMA. Suggest a high-grade stenosis at the origi n of the bilateral single renal arteries secondary to calcified plaque. MUSCULOSKELETAL: No acute osseous abnormalities. No aggressive osseous lesions. Mild to moderate mult ilevel degenerative disc disease. SOFT TISSUE/ABDOMINAL WALL: Small epigastric ventral wall fat filled hernias. LOWER CHEST: Lingular scarring. Mitral annulus calcifications. RCA calcifications. IMPRESSION: 1. No CT evidence of urolithiasis or suspicious renal/urothelial neoplasm. Bilateral renal cysts. 2. Colonic diverticulosis.
== END | disposition home or self-care (01) ==
LOC: RADCTMAIN 14:20
PROVIDERS: ATTEND Urology
DX: C67.9 Malignant neoplasm of bladder, unspecified (principal); N28.1 Cyst of kidney, acquired; K57.30 Diverticulosis of large intestine without perforation or abscess without bleeding; I70.0 Atherosclerosis of aorta
CPT/HCPCS: 82565; 84520; 74178; 36415; 74400; Q9967

== ENCOUNTER 2024-04-24 06:20 | Day surgery (SDC) | payer MEDICARE ==
[~2024-04-24 06:20] MED LIST changes: +ALPRAZolam 0.25 MG TAB PO PRN; +ALPRAZolam 0.5 MG TAB PO PRN; -LACTATED RINGERS 1,000 ML IV SCH; +NITROGLYCERIN SL TABS 0.4 MG TAB SUBLINGUAL PRN
[2024-04-24] MEDS: IV FLUID CONTINUATION 1,000 ML IV ONE (07:00)
[2024-04-24] MEDS: SODIUM CHLORIDE 0.9% 1,000 ML in EMPTY BAG 1 BAG IV SCH ×2 (07:00→16:59)
[2024-04-24 07:28] LABS: African American GFR (CKD) 75 (>60 ml/min/1.73 sqM); Anion Gap 8 mmol/L; Blood Urea Nitrogen 15 mg/dL (7-17); Calcium 9.7 mg/dL (8.4-10.2); Carbon Dioxide 27 mmol/L (22-30); Chloride 105 mmol/L (98-107); Glucose 121 mg/dL (74-99); Non-African American GFR(CKD) 65 (>60 ml/min/1.73 sqM); Potassium 3.9 mmol/L (3.5-5.1); Sodium 140 mmol/L (137-145)
[2024-04-24] MEDS: MIDAZOLAM 2 MG/2 ML VIAL IVP ONE (07:44)
[2024-04-24] MEDS: LIDOCAINE 1% INJ 10MG/ML (20 ML MDV) SQ ONE (07:44)
[2024-04-24] MEDS: HEPARIN SODIUM,PORCINE 10,000 UNIT in SODIUM CHLORIDE 0.9% 1,000 ML IRRIGATION PRN (07:57)
[2024-04-24] MEDS: HEPARIN SODIUM,PORCINE (1 ML) 2,500 UNIT in SODIUM CHLORIDE 0.9% 250 ML IRRIGATION PRN (07:58)
[2024-04-24] MEDS: HEPARIN SODIUM 1,000 UN/ML (10ML VL) IV ONE (08:00)
[2024-04-24] MEDS: niCARdipine Syringe (1,000 mcg/10 mL) INTRACORON ONE (08:21)
[2024-04-24] MEDS: IOPAMIDOL-370 100ML BTL INJ ONE (08:24)
[2024-04-24] MEDS ORDERED: NITROGLYCERIN SL TABS 0.4 MG TAB SUBLINGUAL PRN ×2 (08:27→08:29)
[2024-04-24] MEDS ORDERED: RX INFO: IV CONTRAST WAS GIVEN 1 EACH MISC MISCELLANE PRN (08:27)
[2024-04-24] MEDS ORDERED: ATROPINE SULFATE 0.1 MG/ML 10ML SYRINGE IV PRN (08:27)
[2024-04-24] MEDS ORDERED: ZOLPIDEM 5 MG TAB PO PRN (08:27)
[2024-04-24] MEDS: CLOPIDOGREL 75 MG TAB PO ONE (08:28)
[2024-04-24] MEDS ORDERED: BUDESONIDE 0.5 MG/2 ML NEBU INHALATION PRN (08:29)
[2024-04-24] MEDS ORDERED: ALPRAZolam 0.25 MG TAB PO PRN (08:29)
[2024-04-24] MEDS ORDERED: IPRATROPIUM 0.5 MG/2.5 ML NEBU INHALATION PRN (08:29)
--- NOTE | 2024-04-24 08:34 | P.PCN ---
Date of Procedure: 04/24/24 Operative Findings: CARDIAC CATHETERIZATION AND PERCUTANEOUS CORONARY INTERVENTION PERFORMING PHYSICIAN: Virgilio Truong MD, [facility] PROCEDURE PERFORMED: 1. Selective right and left coronary angiogram and KELI to LAD angiogram and SVG to RCA angiogram 2. Left heart catheterization 3. Successful stenting of SVG to RCA using 3.0 x 15 Xience GAVINO with an excellent angiographic results with adjunctive use of IFR and IVUS 4. Ultrasound-guided access of the right common femoral artery and selective right common femoral artery angiogram INDICATION: Chest discomfort and shortness of is concerning for angina and is a 74-year-old female patient who underwent myocardial perfusion imaging stress test came in to be abnormal COMPLICATION: None APPROACH: Right common femoral artery LEVEL OF SEDATION: Moderate with the sedation time off 40 minutes PROCEDURE DESCRIPTION: After clinic and informed consent the patient was brought to the cardiac Explosive Man. The right common femoral artery was cannulated using micropuncture technique under ultrasound guidance a micropuncture wire passed easily then I placed a 6 Maldivian 11 cm sheath at the right common femoral artery. Selective right and left coronary angiogram performed using JR4 and JL 4 catheters. The SVG to RCA and MERCER to LAD angiogram was performed using the JR4 catheter be left heart catheterization was performed using 6 Maldivian pigtail catheter with after that I decided to do an IFR of the SVG to RCA. After zeroing Dobler wire and equalizing between the Dobler wire and guiding catheter which was multipurpose catheter the SVG to RCA was engaged and subsequently wired with an IFR came in to be at 0.86. Subsequently I decided to intervene. I did IVUS and that showed a diameter around 3 mm. Predilatation was performed using 3 mm NC balloon before I deployed 3.0 x 15 mm stent where the stent was positioned under fluoroscopy guidance and deployed under fluoroscopy guidance and postdilated using 3.25 mm NC balloon. Final angiogram showed good angiographic results and the procedure was completed with no complication SELECTIVE CORONARY ANGIOGRAM: The right coronary artery: Chronically occluded Left main: Stented with mild in-stent restenosis The left circumflex: Has an ostial lesion appears to be in the range of 50% The left anterior descending artery: Is occluded but the KELI to LAD is patent Coronary bypasses angiogram The SVG to RCA has severe lesion in the mid portion The free KELI to LAD is patent HEMODYNAMICS: LVEDP was 12 mmHg with no significant gradient across aortic valve CONCLUSION: Patent free MERCER to LAD. Intermediate to severe in-stent restenosis of the distal left main and proximal LCx Severe disease involving the SVG to RCA. I performed PCI of the SVG to RCA POSTPROCEDURE MANAGEMENT: 1. Dual antiplatelet therapy using aspirin and plan for at least 6 month 2. Aggressive cholesterol control 3. Follow-up with the patient
[2024-04-24] MEDS: ASPIRIN 325 MG TAB PO STA (08:56)
[2024-04-24] MEDS ORDERED: NON FORMULARY DRUG (Ubidecarenone [Co Q-10] 300 MG Capsule) PO SCH (09:00)
[2024-04-24] MEDS: MAG HYDROX/AL HYDROX/SIMETH 30 ML CUP PO PRN (09:06)
[2024-04-24] MEDS: HYDROmorphone 1 MG/ML 1 ML SYRINGE IVP PRN (10:33)
[2024-04-24] MEDS: ATORVASTATIN 80 MG TAB PO STA (13:42)
[2024-04-24] MEDS: traMADol 50 MG TAB PO PRN (16:35)
[2024-04-24] MEDS: NON FORMULARY DRUG (Evolocumab [Repatha Sureclick] 140 MG/ML Each) SQ SCH (16:59)
[2024-04-24] MEDS: allopurinoL 100 MG TAB PO SCH (16:59)
[2024-04-24] MEDS: ISOSORBIDE MONONITRATE ER 60 MG TAB.ER.24H PO SCH (17:00)
[2024-04-24] MEDS: FUROSEMIDE 20 MG TAB PO SCH (17:00)
[2024-04-24] MEDS: FOLIC ACID 1 MG TAB PO SCH (17:00)
[2024-04-24] MEDS: ASPIRIN 81 MG PO SCH (17:00)
[2024-04-24] MEDS: LORATADINE 10 MG TAB PO SCH (17:00)
[2024-04-24] MEDS: MONTELUKAST 10 MG TAB PO SCH (17:00)
[2024-04-24] MEDS: carvediloL 6.25 MG TAB PO SCH ×2 (17:00→20:27)
[2024-04-24] MEDS: MULTIVITAMINS, THERA 1 EACH TAB PO SCH (17:00)
[2024-04-24] MEDS: CHOLECALCIFEROL 25 MCG (1000 IU) TABLET PO SCH (17:00)
[2024-04-24] MEDS: SERTRALINE 25 MG TAB PO SCH (17:01)
[2024-04-24] MEDS: ONDANSETRON 4 MG/2 ML VIAL IVP STA (17:01)
[2024-04-24] MEDS: RANOLAZINE 500 MG TAB.ER.12H PO SCH (17:01)
[2024-04-24] MEDS: SPIRONOLACTONE 25 MG TAB PO SCH (17:01)
[2024-04-24] MEDS: SACUBITRIL/VALSARTAN 49 MG-51 MG TABLET PO SCH (20:26)
[2024-04-24] MEDS: CLOPIDOGREL 75 MG TAB PO SCH (20:27)
[2024-04-25] MEDS: PANTOPRAZOLE 40 MG TABLET PO SCH (05:53)
[2024-04-25] MEDS: LEVOTHYROXINE 50 MCG TAB PO SCH (05:53)
[2024-04-25 07:17] VITALS: BP 136/76; PULSE 64; RESP 15; TEMP 98.6
[2024-04-25 10:51] VITALS: BMI 28.2
== END 2024-04-25 10:50 | disposition home or self-care (01) ==
LOC: CATHCVL 06:20 → 6NMEDSUR 08:25 → CATHCVL 04-25 10:50
PROVIDERS: ATTEND Internal Medicine Interventional Cardiology
DX: T82.855A Stenosis of coronary artery stent, initial encounter (principal); I25.10 Atherosclerotic heart disease of native coronary artery without angina pectoris; I25.5 Ischemic cardiomyopathy; E78.5 Hyperlipidemia, unspecified; I10 Essential (primary) hypertension; Z85.51 Personal history of malignant neoplasm of bladder; Z85.828 Personal history of other malignant neoplasm of skin; Z79.02 Long term (current) use of antithrombotics/antiplatelets; Z79.82 Long term (current) use of aspirin; Z79.899 Other long term (current) drug therapy; Z95.1 Presence of aortocoronary bypass graft; Z88.2 Allergy status to sulfonamides; Z95.5 Presence of coronary angioplasty implant and graft; Z88.1 Allergy status to other antibiotic agents; Z88.5 Allergy status to narcotic agent; Z88.6 Allergy status to analgesic agent; Z88.8 Allergy status to other drugs, medicaments and biological substances; Y83.8 Other surgical procedures as the cause of abnormal reaction of the patient, or of later complication, without mention of misadventure at the time of the procedure
CPT/HCPCS: 99152; 99153; 94760; 92978; 93459; 93799; 80048; C9604; J2250; J1644 ×3; J2003; J1171 ×2; Q9967